=== PATIENT | male | born 1995 | race Caucasian/White ===

== ENCOUNTER 2017-11-25 04:34 | Emergency (ER) | payer BC, MEDICAID ==
--- NOTE | 2017-11-25 04:52 | Emergency Department Record ---
History of Present Illness - General Chief Complaint: Laceration(s) Stated Complaint: LACERATION Time Seen by Provider: 11/25/17 04:46 Source: Patient Mode of Arrival: Ambulatory Limitations: No limitations - History of Present Illness Initial Commments: 22 yo male presents to ED for evaluation of (2) lacerations to the right hand after "punching a wall". Patient reports that he became very upset over an issue involving his sister, denies punching anyone (denies fight bite). Patient denies other injury on examination, and denies health problems at his baseline. Patient reports that his tetanus update has been greater than 5 years. Onset/Timin -: Hour(s) Extremity Location: Right: Hand Place: Home Associated Symptoms: None Treatments Prior to Arrival: Bandage - Ez Coma Scale Eye Response: (4) Open spontaneously Motor Response: (6) Obeys commands Verbal Response: (5) Oriented [place] Total: 15 - Related Data Hx Tetanus Toxoid Vaccination: Yes Patient Tetanus UTD (within 5 yrs): No Previous Rx's Medication Instructions Recorded Amoxicillin/Potassium Clav 1 tab PO BID #19 tab 11/25/17 [Augmentin 875-125 Tablet] Allergies Allergy/AdvReac Type Severity Reaction Status Date / Time No Known Drug Allergies Allergy Verified 01/01/14 15:53 Travel Screening - Travel/Exposure Within Last 30 Days Have you traveled within the last 30 days?: No - Travel Symptoms Symptom Screening: None Review of Systems Constitutional: Denies: Chills, Fever, Malaise, Night sweats Eyes: Denies: Eye discharge, Eye pain ENT: Denies: Congestion, Ear pain, Epistaxis Respiratory: Denies: Cough, Dyspnea Cardiovascular: Denies: Chest pain, Dyspnea on exertion Endocrine: Denies: Fatigue, Heat or cold intolerance Gastrointestinal: Denies: Abdominal pain, Nausea, Vomiting Genitourinary: Denies: Incontinence, Retention Musculoskeletal: Denies: Arthralgia, Back pain, Gout, Joint swelling Skin: Reports: Other (Hand laceration). Denies: Bruising, Change in color Neurological: Denies: Abnormal gait, Confusion, Headache, Seizure Psychiatric: Denies: Anxiety Hematological/Lymphatic: Denies: Anemia, Blood Clots Past Medical History - SOCIAL HISTORY Smoking Status: Current every day smoker - RESPIRATORY Hx Respiratory Disorders: No - CARDIOVASCULAR Hx Cardio Disorders: No - NEURO Hx Neuro Disorders: No - GI Hx GI Disorders: No - Hx Genitourinary Disorders: No - ENDOCRINE Hx Endocrine Disorders: No - MUSCULOSKELETAL Hx Musculoskeletal Disorders: No - PSYCH Hx Psych Problems: No - HEMATOLOGY/ONCOLOGY Hx Hematology/Oncology Disorders: No Family Medical History Any Significant Family History?: Yes Hx Cancer: Father Hx Heart Disease: Father Hx HTN: Father Physical Exam - General General Appearance: Alert, Oriented x3, Cooperative, Mild distress, Other ( Patient is clinically intoxicated on examination.) Limitations: No limitations - Head Head exam: Atraumatic, Normocephalic, Normal inspection Head exam detail: negative: Abrasion, Contusion, Mixon's sign, General tenderness, Hematoma, Laceration - Eye Eye exam: Normal appearance. negative: Periorbital swelling, Periorbital tenderness - ENT Ear exam: negative: Auricular hematoma, Auricular trauma Nasal Exam: negative: Active bleeding, Discharge, Dried blood, Foreign body Mouth exam: negative: Drooling, Laceration, Muffled voice, Tongue elevation - Neck Neck exam: Normal inspection. negative: Meningismus, Tenderness - Respiratory Respiratory exam: Normal lung sounds bilaterally. negative: Rales, Respiratory distress, Rhonchi, Stridor - Cardiovascular Cardiovascular Exam: Regular rate, Normal rhythm, Normal heart sounds Peripheral Pulses: 3+: Radial (R) - GI/Abdominal GI/Abdominal exam: Soft. negative: Rebound, Rigid, Tenderness - Rectal Rectal exam: Deferred - exam: Deferred - Extremities Extremities exam: Other (2.0 cm laceration at the base of the MCP joint of the right middle/ring finger, 2.0 cm laceration involving the flexor surface at the DIP of the right ring finger. ROM intact, no evidence for tendon laceration. ) . negative: Calf tenderness, Pedal edema - Back Back exam: Denies: CVA tenderness (R), CVA tenderness (L) - Neurological Neurological exam: Alert, Normal gait, Oriented X3 - Psychiatric Psychiatric exam: Normal affect, Normal mood - Skin Skin exam: Normal color. negative: Abrasion Type of lesion: negative: abrasion Course Vital Signs 11/25/17 04:37 Temperature 98.3 F Pulse Rate 115 H Respiratory 16 Rate Blood Pressure 134/92 Pulse Ox 99 - Reevaluation(s) Reevaluation #1: 11/25/17 04:56 Right hand: No acute fractures identified 2.0 cm laceration to the base of the right MCP joint of the middle/ring fingers , bleeding controlled. Wound was cleaned and prepped in sterile fashion, no residual FB identified on examination. Wound was then irrigated with 500 mL of jet irrigation to minimize infection risk. Wound was anesthetized with 1.0 mL of 1% Lidocaine without epi with good anesthesia, and the laceration was repaired with 4-0 Prolene (#4) sutures in interrupted fashion. Patient tolerated the procedure well without complications. 2.0 cm laceration to the overlying the flexor surface at the PIP, bleeding controlled. Wound was cleaned and prepped in sterile fashion, no residual FB identified on examination. Wound was irrigated with jet irrigation to minimize infection. Wound was anesthetized with 1.0 mL of 1% Lidocaine without epinephrine with good anesthesia, and the laceration was repaired with 4-0 Prolene (#4) sutures in interrupted fashion. Patient tolerated the procedure well without complications. Patient was instructed to have sutures removed in 10-14 days. Tetanus was updated prior to discharge And antibiotic treatment was initiated with Augmentin prior to discharge as well. Patient appears stable for discharge with family members at the bedside. Disposition Disposition: Discharge Clinical Impression: Hand laceration Qualifiers: Encounter type: initial encounter Foreign body presence: without foreign body Laterality: right Qualified Code(s): S61.411A - Laceration without foreign body of right hand, initial encounter Disposition: Home, Self-Care Condition: (2) Stable Instructions: Care For Your Stitches (ED) Additional Instructions: Return to ED if your symptoms worsen or if you have any concerns. Augmentin as directed. Follow-up with your family doctor in 3-5 days as directed. Prescriptions: Amoxicillin/Potassium Clav [Augmentin 875-125 Tablet] 1 tab PO BID #19 tab Forms: Patient Portal Access Time of Disposition: 04:55 Quality - Quality Measures Quality Measures: N/A - Blood Pressure Screening Does Patient Have Any of the Following: No Blood Pressure Classification: Hypertensive Reading Systolic Measurement: 134 Diastolic Measurement: 92 Screening for High Blood Pressure: < First Hypertensive BP, F/U Documented > [ G8950] First Hypertensive Follow-up Interventions: Referral to alternative/primary care provider.
[2017-11-25] MEDS ORDERED: Diph,Pert(Acell),Tet Vac 0.5 ML SYR IM ONE (04:55)
[2017-11-25] MEDS ORDERED: AMOXICILLIN/POTASSIUM CLAV 875MG/125MG TABLET PO ONE (04:55)
--- NOTE | 2017-11-28 13:00 | RADIOLOGY REPORT ---
EXAM: RIGHT HAND, THREE VIEWS HISTORY: PATIENT PUNCHED WALL. UNABLE TO SPREAD FINGERS. TECHNIQUE: Three views of the right hand were obtained. FINDINGS: There is mild soft tissue swelling. No fracture or malalignment. IMPRESSION: NO ACUTE OSSEOUS ABNORMALITY RIGHT HAND. JOB NUMBER: [id number] MTDD
== END 2017-11-25 05:46 | disposition home or self-care (01) ==
LOC: ER 04:34
DX: S61.212A Laceration without foreign body of right middle finger without damage to nail, initial encounter (principal); S61.214A Laceration without foreign body of right ring finger without damage to nail, initial encounter; W22.8XXA Striking against or struck by other objects, initial encounter; Y92.009 Unspecified place in unspecified non-institutional (private) residence as the place of occurrence of the external cause; F17.210 Nicotine dependence, cigarettes, uncomplicated
CPT/HCPCS: 12042; 90715; 96372; 99283; 99284

== ENCOUNTER 2018-10-01 18:15 | Emergency (ER) | payer SELFPAY ==
[2018-10-01] MEDS ORDERED: CYCLOBENZAPRINE 10MG TABLET PO ONE (19:02)
[2018-10-01] MEDS ORDERED: KETOROLAC 30 MG/ML VIAL IM ONE (19:02)
--- NOTE | 2018-10-01 19:07 | Emergency Department Record ---
History of Present Illness - General Chief Complaint: Back Pain/Injury Stated Complaint: back pain Time Seen by Provider: 10/01/18 19:02 Source: Patient Mode of Arrival: Ambulatory Limitations: No limitations - History of Present Illness Initial Comments: 23 yo male presents with low back pain. The pain has been present for about 3-4 days. 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 No prior chronic pain or known back disease. He gets mild pain from time to time with work. No falls or traumas. No pain down the legs. No numbness or tingling. No incontinence. No fever. No other current changes in his health. MD Complaint: Back pain -: Days(s) (3-4) Similar Symptoms Previously: Yes Place: Work Radiation: None Severity: Moderate Quality: Aching Consistency: Constant Improves With: Other (Rest) Worsens With: Movement, Walking, Other (Lifting) Associated Symptoms: Denies other symptoms - Related Data Previous Rx's Medication Instructions Recorded Cyclobenzaprine HCl [Flexeril] 10 mg PO TID #15 tablet 10/01/18 Naproxen [Naprosyn] 500 mg PO Q12H #20 tab. 10/01/18 Allergies Allergy/AdvReac Type Severity Reaction Status Date / Time No Known Drug Allergies Allergy Verified 10/01/18 19:06 Review of Systems Constitutional: Denies: Chills, Fever, Malaise, Weakness Eyes: Denies: Eye discharge, Eye pain, Photophobia, Vision change ENT: Denies: Congestion, Throat pain Respiratory: Denies: Dyspnea, Hemoptysis, Wheezes Cardiovascular: Denies: Chest pain Endocrine: Denies: Fatigue Gastrointestinal: Denies: Abdominal pain, Diarrhea, Nausea, Vomiting Genitourinary: Denies: Dysuria, Frequency, Hematuria Musculoskeletal: Reports: Back pain, Myalgia. Denies: Arthralgia, Joint swelling Skin: Denies: Bruising, Change in color, Rash Neurological: Denies: Abnormal gait, Headache, Numbness, Paresthesias, Tingling, Tremors, Vertigo, Weakness Psychiatric: Denies: Anxiety Hematological/Lymphatic: Denies: Easy bleeding, Easy bruising Past Medical History - SOCIAL HISTORY Smoking Status: Never smoker - RESPIRATORY Hx Respiratory Disorders: No - CARDIOVASCULAR Hx Cardio Disorders: No - NEURO Hx Neuro Disorders: No - GI Hx GI Disorders: No - Hx Genitourinary Disorders: No - ENDOCRINE Hx Endocrine Disorders: No - MUSCULOSKELETAL Hx Musculoskeletal Disorders: No - PSYCH Hx Psych Problems: No - HEMATOLOGY/ONCOLOGY Hx Hematology/Oncology Disorders: No Family Medical History Hx Cancer: Father Hx Heart Disease: Father Hx HTN: Father Physical Exam - General General Appearance: Alert, Oriented x3, Cooperative, No acute distress, Other (Healthy, well appearing) Limitations: No limitations - Head Head exam: Atraumatic, Normocephalic, Normal inspection - Eye Eye exam: Normal appearance, PERRL. negative: Conjunctival injection, Scleral icterus - ENT ENT exam: Normal exam Ear exam: Normal external inspection Nasal Exam: Normal inspection Mouth exam: Normal external inspection - Neck Neck exam: Normal inspection - Respiratory Respiratory exam: Normal lung sounds bilaterally. negative: Respiratory distress - Rectal Rectal exam: Deferred - exam: Deferred - Extremities Extremities exam: Normal inspection, Full ROM, Other (Negative SLT bilaterally). negative: Calf tenderness, Joint swelling, Normal capillary refill, Pedal edema, Tenderness Image of Full Body: 1 - tender across the lumbar area, normal inspection, no bony tenderness of the spine from base of skull to tailbone - Back Back exam: Reports: Full ROM, Muscle spasm, Paraspinal tenderness, Tenderness. Denies: CVA tenderness (R), CVA tenderness (L), Vertebral tenderness - Neurological Neurological exam: Alert, Normal gait, Other (EHL intact bilateral, symmetric reflexes bilaterally patellar, foot flex and ext intact fully bilateral). negative: Abnormal gait, Altered, Motor sensory deficit, Oriented X3 - Psychiatric Psychiatric exam: Normal affect, Normal mood. negative: Agitated, Anxious - Skin Skin exam: Dry, Intact, Normal color, Warm Course - Reevaluation(s) Reevaluation #1: 10/01/18 19:06 Well appearing No risk factors in the history or exam No radicular symptoms Supportive symptomatic treatment Disposition Disposition: Discharge Clinical Impression: Lumbar spine strain Qualifiers: Encounter type: initial encounter Qualified Code(s): S39.012A - Strain of muscle, fascia and tendon of lower back, initial encounter Disposition: Home, Self-Care Condition: (1) Good Instructions: Low Back Strain (ED) Additional Instructions: Rest Avoid heavy lifting Return if you have any numbness, tingling, weakness, changes in your urination or bowel movements Off work 10/02/18 Call your doctor for a recheck if not getting better in the next week Prescriptions: Cyclobenzaprine HCl [Flexeril] 10 mg PO TID #15 tablet Naproxen [Naprosyn] 500 mg PO Q12H #20 tab. Time of Disposition: 19:09 Quality - Quality Measures Quality Measures: N/A - Blood Pressure Screening Does Patient Have Any of the Following: No Systolic Measurement: ~ Screening for High Blood Pressure: < Normal BP, F/U Not Required > [G8783]
== END 2018-10-01 19:46 | disposition home or self-care (01) ==
LOC: ER 18:15
DX: S39.012A Strain of muscle, fascia and tendon of lower back, initial encounter (principal); X58.XXXA Exposure to other specified factors, initial encounter; Y93.H3 Activity, building and construction; Y92.9 Unspecified place or not applicable; Y99.0 Civilian activity done for income or pay
CPT/HCPCS: 96372; 99283; J1885